=== PATIENT | female | born 1965 | race Two or more races ===

== ENCOUNTER 2019-09-22 11:30 | Emergency (ER) | payer OTHER ==
[~2019-09-22] VITALS: Ht 160 cm; Wt 73.9 kg
[2019-09-22] MEDS ORDERED: LOSARTAN POTAS100 MG ORAL (11:45)
[2019-09-22 11:50] VITALS: BP 135/60
--- NOTE | 2019-09-22 11:50 | NUR ---
ED Nurse Note: Patient walked in to ER due to constant pain with pulsation in mid neck are for 3 days. patient is alert and orientedx4, ambulatory. VSS. placed the patient on campus monitor.
[2019-09-22 13:00] VITALS: BP 133/65
[2019-09-22 14:00] VITALS: BP 143/67
--- NOTE | 2019-09-22 14:20 | NUR ---
ED Nurse Note: Thyroid US ongoing at bedside. patient in stable condition.
[2019-09-22 15:00] VITALS: BP 132/70
--- NOTE | 2019-09-22 15:20 | NUR ---
ER DISCHARGE NOTE: Patient is cleared to be discharged per ERMD, pt is aox4, on room air, with stable vital signs. pt was given dc instructions, pt was able to verbalize understanding, pt id band removed. pt is able to ambulate with steady gait. pt took all belongings.
[2019-09-22 15:22] VITALS: BP 132/70
--- NOTE | 2019-09-22 22:04 | Emergency Room Report ---
History of Present Illness General Chief Complaint: Pain Source: Patient Present Illness Allergies: Coded Allergies: No Known Allergies (Unverified , 09/22/19) Patient History Reviewed Nursing Documentation: PMH: Agreed; PSxH: Agreed Nursing Documentation-PMH Hx Hypertension: Yes Physical Exam Vital Signs Date Time Temp Pulse Resp B/P (MAP) Pulse Ox O2 Delivery O2 Flow Rate FiO2 09/22/19 11:42 98.8 83 19 159/76 (103) 96 Room Air Medical Decision Making Diagnostic Impression: Primary Impression: Neck pain ER Course Patient presented for midline neck pain. Ultrasound showed no acute abnormalities. Last Vital Signs Date Time Temp Pulse Resp B/P (MAP) Pulse Ox O2 Delivery O2 Flow Rate FiO2 09/22/19 15:22 98.5 87 18 132/70 100 Room Air Disposition: HOME, SELF-CARE Condition: Stable Patient Instructions: Hypertension, [id number] Lefty Reyez MD Sep 22, 2019 22:04
--- NOTE | 2019-09-23 12:00 | Diagnostic Imaging Report ---
Indication: Neck pain Technique: Grayscale and duplex Doppler imaging of the thyroid gland performed. Comparison: None Findings: The size, contour, and echogenicity of both lobes of the thyroid gland are within normal limits although the thyroid is somewhat the heterogeneous and asymmetric in size. The left lobe is 2.7 x 0.4 x 1.2 cm. The right lobe is 4.8 x 1.5 x 1.7 cm. No nodules or cysts are demonstrated. No adenopathy or abnormal fluid collections are identified. Note is made of some tortuosity of the arteries within the neck likely on the basis of atherosclerotic vascular disease. IMPRESSION: No mass or thyroid nodules identified. Asymmetrically small left thyroid lobe demonstrated. Atherosclerotic vascular disease Interpretation is based on ACR Thyroid Imaging Reporting and Data System (ACR TI-RADS).
--- NOTE | 2019-09-23 12:03 | Diagnostic Imaging Report ---
Indication: TIA TECHNIQUE: Duplex extracranial carotid and vertebral artery sonography performed with color flow imaging and waveform analysis. COMPARISON: None FINDINGS: Right carotid: Grayscale and color-flow imaging demonstrating no hemodynamically significant stenosis within the common carotid artery, extracranial internal carotid artery. Peak systolic and end-diastolic velocities are within normal limits. ICA/CCA ratios are within normal limits. Peak systolic velocity in the right ICA is 46 cm/s. ICA/CCA ratio 0.8. Mild heterogeneous plaques are demonstrated consistent with atherosclerotic disease. Left carotid: Grayscale and color-flow imaging demonstrating no hemodynamically significant stenosis within the common carotid artery, extracranial internal carotid artery. Peak systolic and end-diastolic velocities are within normal limits. ICA/CCA ratios are within normal limits. Peak systolic velocity in the left ICA is 39 cm/s. IC/CCA ratio 0.7. Mild heterogeneous plaques are demonstrated consistent with atherosclerotic disease. Vertebral arteries: Antegrade flow demonstrated within both vertebral arteries. IMPRESSION: No hemodynamically significant extracranial carotid artery stenosis identified. Antegrade flow within both vertebral arteries. This report utilizes carotid stenosis grading criteria based on the meeting of Society of radiologists in ultrasound consensus conference, August 2002.
== END 2019-09-22 15:20 | disposition home or self-care (01) ==
LOC: EMR 12:18
DX: M54.2 Cervicalgia (principal); I10 Essential (primary) hypertension; I70.90 Unspecified atherosclerosis
CPT/HCPCS: 76536; 93880; Z7502; 99284